=== PATIENT | female | born 1975 | race Caucasian/White ===

== ENCOUNTER 2021-01-20 19:46 | Emergency (ER) | payer OTHER ==
[2021-01-20 20:35] VITALS: BP 151/95; PULSE 59; TEMP 98.8; BMI 29.7
[2021-01-20] MEDS ORDERED: PENICILLIN V POTASSIUM 500 MG TABLET PO ONE (20:56)
[2021-01-20] MEDS ORDERED: AMOX TR/POT CLAV 875MG/125MG TABLETS (FP) PO ONE (21:09)
[2021-01-20] MEDS ORDERED: AMOX TR/POT CLAV 875MG/125MG TABLETS (FP) ONE (21:12)
== END 2021-01-20 21:17 ==
LOC: FER 19:46
DX: K08.89 Other specified disorders of teeth and supporting structures (principal)
CPT/HCPCS: 99283-25